=== PATIENT | male | born 1955 ===

== ENCOUNTER 2017-07-19 20:16 | Inpatient (IN) | payer OTHER ==
[~2017-07-19] VITALS: Ht 175.3 cm; Wt 71.7 kg
[~2017-07-19 20:16] MED LIST: CEFADROXIL1 GM PO
[2017-07-19] MEDS ORDERED: CLARITIN10 M1 (20:28)
[2017-07-24] MEDS ORDERED: CIPRO500 MG PO (16:16)
[2017-07-24] MEDS ORDERED: FLAGYL500MG PO (16:17)
[2017-07-24] MEDS ORDERED: ZANTAC150 MG PO (16:17)
[2017-07-24] MEDS ORDERED: INTESTINEX680 M1 PO (16:17)
== END 2017-07-24 17:57 | disposition home or self-care (01) | DRG 392 ==
LOC: ER 20:16 → SURH 07-20 11:05 → SEC-K 07-20 11:05 → SURH 07-20 13:47
DX: K57.32 Diverticulitis of large intestine without perforation or abscess without bleeding (principal)

== ENCOUNTER 2017-09-02 22:11 | Inpatient (IN) | payer OTHER ==
[~2017-09-02] VITALS: Ht 172.7 cm; Wt 72.6 kg
[~2017-09-02 22:11] MED LIST changes: +CIPRO500 MG PO; +CLARITIN10 M1; +FLAGYL500MG PO; +INTESTINEX680 M1 PO; +ZANTAC150 MG PO
[2017-09-08] MEDS ORDERED: AMOX-CLAV 875-1 EACH PO (15:23)
[2017-09-08] MEDS ORDERED: INTESTINEX680 M1 PO (15:23)
[2017-09-08] MEDS ORDERED: ZANTAC150 M3 PO (15:24)
[2017-09-08] MEDS ORDERED: PROTONIX40 MG PO (15:24)
== END 2017-09-08 17:12 | disposition home or self-care (01) | DRG 392 ==
LOC: ER 22:11 → SURH 09-03 10:32
PROC: 02HV33Z Insertion of Infusion Device into Superior Vena Cava, Percutaneous Approach (ICD-10-PCS; principal; 2017-09-04)
DX: K57.32 Diverticulitis of large intestine without perforation or abscess without bleeding (principal); K52.89 Other specified noninfective gastroenteritis and colitis

== ENCOUNTER 2017-10-17 05:08 | Emergency (ER) | payer OTHER ==
[~2017-10-17] VITALS: Ht 165.1 cm; Wt 68.0 kg
[~2017-10-17 05:08] MED LIST changes: +AMOX-CLAV 875-1 EACH PO; +PROTONIX40 MG PO; +ZANTAC150 M3 PO
[2017-10-17] MEDS ORDERED: FLAGYL500MG PO (14:26)
[2017-10-17] MEDS ORDERED: CIPRO500 MG PO (14:26)
[2017-10-17] MEDS ORDERED: INTESTINEX680 M1 PO (14:26)
== END 2017-10-17 17:17 | disposition home or self-care (01) ==
LOC: ER 05:08
DX: K57.92 Diverticulitis of intestine, part unspecified, without perforation or abscess without bleeding (principal)

== ENCOUNTER 2017-12-05 09:00 | Inpatient (IN) | payer OTHER ==
[~2017-12-05] VITALS: Ht 172.7 cm; Wt 68.9 kg
== END 2017-12-17 17:48 | disposition home or self-care (01) | DRG 331 ==
LOC: SURG 12-14 07:25 → SURH 12-14 07:25 → O/R 12-14 07:25 → SURG 12-14 09:00 → SURH 12-14 18:21 → SURG 12-16 09:40
PROVIDERS: Colon & Rectal Surgery; Urology
PROC: 4A1BXSH Monitoring of Gastrointestinal Vascular Perfusion using Indocyanine Green Dye, External Approach (ICD-10-PCS; 2017-12-14)
PROC: 0DTN4ZZ Resection of Sigmoid Colon, Percutaneous Endoscopic Approach (ICD-10-PCS; principal; 2017-12-14 13:15)
PROC: 0DJD8ZZ Inspection of Lower Intestinal Tract, Via Natural or Artificial Opening Endoscopic (ICD-10-PCS; 2017-12-14 13:15)
DX: K57.32 Diverticulitis of large intestine without perforation or abscess without bleeding (principal); K52.89 Other specified noninfective gastroenteritis and colitis